=== PATIENT | male | born 1965 | race Caucasian/White ===

== ENCOUNTER 2021-07-19 08:22 | Inpatient (IN) ==
[2021-07-19] MEDS ORDERED: GLUCAGON 1 MG VIAL IM PRN (08:44)
[2021-07-19] MEDS ORDERED: DEXTROSE 50% 25 GM/50 ML VIAL IV PRN (08:44)
[2021-07-19] MEDS ORDERED: CLORAZEPATE 3.75 MG TABLET PO PRN (08:56)
[2021-07-19 09:25] LABS: Basophils # 0.1 10*3/uL (0.0-0.2); Basophils % 0.8 % (0.0-0.8); Eosinophils # 0.3 10*3/uL (0.0-0.87); Eosinophils % 3.6 % (0.00-10.9); Hemoglobin 15.5 GM/DL (14.0-18.0); Immature Granulocytes % 0.3 %; Immature Granulocytes Absolute 0.02 #; Lymphocytes # 3.1 10*3/uL (1.4-4.0); Mean Corpuscular HGB Conc 33.7 GM/DL (32-36); Mean Corpuscular Volume 91.8 FL (87-102); Neutrophils % 45.3 % (38.7-73.9); Platelet Count 295 T/CUMM (130-400); Red Blood Count 5.01 MC/CUMM (3.8-5.5); Red Cell Distribution Width 14.4 % (9.3-17.3); White Blood Count 7.3 T/CUMM (4-12)
[2021-07-19 09:44] LABS: Alanine Aminotransferase 27 U/L (16-61); Albumin 3.7 G/DL (3.4-5.0); Alkaline Phosphatase 54 U/L (45-117); Aspartate Amino Transferase 17 U/L (0-37); Bilirubin,Total < 0.39 MG/DL (0.20-1.00); Blood Urea Nitrogen 12 MG/DL (7-18); Calcium 8.9 MG/DL (8.5-10.1); Carbon Dioxide 25 MMOL/L (21-32); Eosinophils 2 % (0-10); Estimated Glom Filtration Rate 0 ML/MIN; Glucose 91 MG/DL (74-106); Lymphocytes 48 % (20-55); Segmented Neutrophils 47 % (50-85); Sodium 136 MMOL/L (136-145); Total Cells Counted 100; Total Protein 7.8 G/DL (6.4-8.2)
[2021-07-19 09:45] LABS: Platelet Estimate Adequate
[2021-07-19 10:47] LABS: ABG Base Excess 1.6 MMOL/L (-2.5-2.5); ABG HCO3 25.8 MMOL/L (20-26); ABG Oxygen Saturation 96.1 % (95-100); ABG PH 7.422 (7.35-7.45); ABG PO2 78.8 MM HG (80-95); ABG TCO2 22.1 MMOL/L (23-27)
[2021-07-19] MEDS: CHLORHEXIDINE 4% SOLN 118 ML BOTTLE TOP SCH ×2 (11:21→21:36)
[2021-07-19] MEDS: CHLORHEXIDINE 0.12% ORAL RINSE 60 ML BOTTLE SWISH/SPIT SCH ×2 (11:22→21:36)
[2021-07-19] MEDS ORDERED: MORPHINE 2 MG/1 ML SYRINGE IV PRN (11:50)
[2021-07-19] MEDS ORDERED: NITROGLYCERIN SL 0.4 MG TABLET SL PRN (11:50)
[2021-07-19] MEDS: SODIUM CHLORIDE 0.9% 1,000 ML IV SCH (18:10)
[2021-07-19] MEDS ORDERED: NICOTINE 21 MG/24 HR PATCH TRANSDERM PRN (18:26)
[2021-07-20] MEDS ORDERED: PAPAVERINE 60 MG/2 ML VIAL ONE (04:51)
[2021-07-20] MEDS ORDERED: VANCOMYCIN 500 MG VIAL ONE (04:51)
[2021-07-20] MEDS ORDERED: VANCOMYCIN 1,000 MG VIAL ONE (04:51)
[2021-07-20] MEDS: CHLORHEXIDINE 4% SOLN 118 ML BOTTLE TOP SCH (04:54)
[2021-07-20] MEDS ORDERED: VANCOMYCIN INJ 1,000 MG in SODIUM CHLORIDE 0.9% 250 ML IV ONE (05:00)
[2021-07-20] MEDS ORDERED: DIAZEPAM 5 MG TABLET PO ONE (05:51)
[2021-07-20] MEDS ORDERED: FAMOTIDINE 20 MG TABLET PO ONE (05:51)
[2021-07-20] MEDS ORDERED: SUFentanil 250 MCG/5 ML AMP ONE ×3 (06:09→10:03)
[2021-07-20] MEDS ORDERED: MIDAZOLAM 10 MG/2 ML VIAL ONE ×4 (06:10→09:56)
[2021-07-20] MEDS ORDERED: PHENYLEPHRINE 10 MG/1 ML VIAL IV ONE (06:18)
[2021-07-20] MEDS ORDERED: ePHEDrine 50 MG/ML VIAL ONE (07:35)
[2021-07-20 07:51] LABS: ABG Oxygen Saturation 99.5 % (95-100); ABG PCO2 48.2 MM HG (35-48); ABG PH 7.303 (7.35-7.45); Glucose Heart Surgery 113 MG/DL (74-106); Hematocrit Heart Surgery 41.2 PERCENT (42-52); Hemoglobin Heart Surgery 13.4 G/DL (14.0-18.0); Ionized Calcium Arterial 1.19 MMOL/L (1.21-1.46); PCO2 Patient Temp Arterial 48.2 MMHG; PH Patient Temp Arterial 7.303; Patient Temperature 37 CELCIUS; Potassium Heart/CVR 4.2 MMOL/L (3.5-5.1); Sodium Heart/CVR 142 MMOL/L (135-145)
[2021-07-20 07:57] LABS: Bacteria,Urine Occasional /HPF (Few); Bilirubin,Urine Negative (Negative); Blood, Urine Negative (Negative); Glucose,Urine (UA) Negative (Negative); Ketones,Urine Negative (Negative); Mucus,Urine Occasional /LPF (Occasional); Nitrite,Urine Negative (Negative); Protein,Urine Negative; RBC,Urine 1 /HPF (0-4); Urine Appearance CLEAR (Clear); Urine Color Straw (Yellow); Urine Specific Gravity 1.009 (1.001-1.035); Urine Urobilinogen < 2.0 EU/DL (0.2-1.0)
[2021-07-20] MEDS ORDERED: SODIUM BICARBONATE 50 MEQ/50 ML VIAL IV ONE ×2 (09:00→10:34)
[2021-07-20] MEDS ORDERED: PHENYLEPHRINE DRIP 40 MG/250 ML PREMIX IV ONE (09:01)
[2021-07-20] MEDS ORDERED: POTASSIUM CHLORIDE RIDER 20 MEQ/100 ML PREMIX IV ONE (09:01)
[2021-07-20] MEDS ORDERED: NITROPRUSSIDE 50 MG/2 ML VIAL ONE (09:01)
[2021-07-20] MEDS ORDERED: CALCIUM CHLORIDE 1,000 MG/10 ML SYRINGE IV ONE (09:01)
[2021-07-20] MEDS ORDERED: ALBUMIN 5% 25.0 GM/500 ML VIAL IV ONE (09:02)
[2021-07-20 09:26] LABS: Hematocrit Heart Surgery 30.4 PERCENT (42-52); Hemoglobin Heart Surgery 9.8 G/DL (14.0-18.0); PCO2 Patient Temp Venous 38.7 MM HG; PH Patient Temp Venous 7.392; PO2 Patient Temp Venous 42.1 MM HG; Potassium Heart/CVR 5.5 MMOL/L (3.5-5.1); VBG Base Excess -1.1 MEQ/L (0-4); VBG HCO3 23.2 MEQ/L (24-28); VBG Oxygen Saturation 81.8 %; VBG PCO2 42.6 MMHG (41-51); VBG PH 7.363; VBG PO2 48.3 MMHG (17-40); VBG Total CO2 22.3 MMOL/L
[2021-07-20 10:00] LABS: Hematocrit Heart Surgery 31.9 PERCENT (42-52); Hemoglobin Heart Surgery 10.3 G/DL (14.0-18.0); PCO2 Patient Temp Venous 35.3 MM HG; PH Patient Temp Venous 7.42; VBG Base Excess -1.1 MEQ/L (0-4); VBG HCO3 23.2 MEQ/L (24-28); VBG Oxygen Saturation 80.7 %; VBG PCO2 38.9 MMHG (41-51); VBG PH 7.391; VBG Total CO2 21.5 MMOL/L
[2021-07-20 10:01] LABS: Potassium Heart/CVR 6.3 MMOL/L (3.5-5.1)
[2021-07-20] MEDS ORDERED: LIDOCAINE 2% 5 ML VIAL ONE ×2 (10:33→11:19)
[2021-07-20] MEDS ORDERED: methylPREDNISolone SOD SUC 1,000 MG/8 ML VIAL ONE (10:33)
[2021-07-20] MEDS ORDERED: MAGNESIUM SULFATE 5 GM/10 ML VIAL IV ONE (10:33)
[2021-07-20] MEDS ORDERED: ALBUMIN 25% 25 GM/100 ML VIAL IV ONE (10:33)
[2021-07-20] MEDS ORDERED: FUROSEMIDE 20 MG/2 ML VIAL ONE (10:34)
[2021-07-20] MEDS ORDERED: HEPARIN 10,000 UNIT/10 ML VIAL ONE (10:34)
[2021-07-20] MEDS ORDERED: PROTAMINE SULFATE 50 MG/5 ML VIAL IV ONE (10:34)
[2021-07-20] MEDS ORDERED: DEXTROSE 5% KCL 20 MEQ 20 MEQ/1,000 ML BAG IV ONE (10:34)
[2021-07-20] MEDS ORDERED: PROTAMINE SULFATE 250 MG/25 ML VIAL IV ONE (10:34)
[2021-07-20] MEDS ORDERED: MANNITOL 100 GM/500 ML BAG IV ONE (10:34)
[2021-07-20 10:35] LABS: ABG Base Excess -3.4 MMOL/L (-2.5-2.5); ABG HCO3 21.6 MMOL/L (20-26); ABG Oxygen Saturation 99.4 % (95-100); ABG PH 7.327 (7.35-7.45); ABG TCO2 20.2 MMOL/L (23-27); Glucose Heart Surgery 194 MG/DL (74-106); Hematocrit Heart Surgery 35.5 PERCENT (42-52); Hemoglobin Heart Surgery 11.5 G/DL (14.0-18.0); Ionized Calcium Arterial 1.24 MMOL/L (1.21-1.46); PH Patient Temp Arterial 7.327; Patient Temperature 37 CELCIUS; Potassium Heart/CVR 5.1 MMOL/L (3.5-5.1); Sodium Heart/CVR 135 MMOL/L (135-145)
[2021-07-20] MEDS ORDERED: POTASSIUM CHLORIDE RIDER 10 MEQ/100 ML PREMIX IV PRN (10:36)
[2021-07-20] MEDS ORDERED: INSULIN REGULAR 100 UNIT/ML IV PRN (10:36)
[2021-07-20] MEDS ORDERED: MAGNESIUM SULF RIDER 4 GM/100 ML PREMIX IV PRN (10:36)
[2021-07-20] MEDS ORDERED: MIDAZOLAM 2 MG/2 ML VIAL IV PRN (10:36)
[2021-07-20] MEDS ORDERED: INSULIN REGULAR 100 UNIT/ML IV ONE (10:36)
[2021-07-20] MEDS ORDERED: NITROPRUSSIDE 100 MG in DEXTROSE 5% 250 ML IV PRN (10:36)
[2021-07-20] MEDS ORDERED: MAGNESIUM SULF RIDER 2 GM/50 ML PREMIX IV PRN (10:36)
[2021-07-20] MEDS ORDERED: CHLORHEXIDINE 4% SOLN 118 ML BOTTLE TOP PRN (10:36)
[2021-07-20] MEDS ORDERED: PHENYLEPHRINE DRIP 40 MG/250 ML PREMIX IV PRN (10:36)
[2021-07-20] MEDS ORDERED: CALCIUM CHLORIDE 1,000 MG/10 ML SYRINGE IV PRN (10:36)
[2021-07-20] MEDS ORDERED: MIDAZOLAM 10 MG/2 ML VIAL IV PRN (10:36)
[2021-07-20] MEDS ORDERED: ONDANSETRON 4 MG/2 ML VIAL IV PRN (10:36)
[2021-07-20] MEDS ORDERED: ACETAMINOPHEN 650 MG SUPP RECTAL PRN (10:36)
[2021-07-20] MEDS ORDERED: DEXTROSE 50% 25 GM/50 ML VIAL IV PRN ×2 (10:36)
[2021-07-20] MEDS ORDERED: MORPHINE 10 MG/1 ML VIAL IV PRN (10:36)
[2021-07-20] MEDS ORDERED: VECURONIUM 10 MG VIAL IV PRN ×2 (10:36)
[2021-07-20] MEDS ORDERED: SODIUM CHLORIDE 0.45% 1,000 ML IV SCH ×2 (11:00)
[2021-07-20] MEDS ORDERED: INSULIN REGULAR DRIP 100 ML IV SCH (11:00)
[2021-07-20] MEDS ORDERED: NITROGLYCERIN DRIP 50 MG/250 ML BOTTLE IV ONE (11:19)
[2021-07-20] MEDS ORDERED: LACTATED RINGERS 1,000 ML IV ONE (11:19)
[2021-07-20] MEDS ORDERED: SEVOFLURANE 1 UNIT/15 MINUTE INH ONE (11:19)
[2021-07-20] MEDS ORDERED: SODIUM CHLORIDE 0.9% 250 ML IV ONE (11:19)
[2021-07-20] MEDS ORDERED: VECURONIUM 10 MG VIAL IV ONE (11:19)
[2021-07-20] MEDS ORDERED: CALCIUM CHLORIDE 1,000 MG/10 ML VIAL IV ONE (11:19)
[2021-07-20] MEDS ORDERED: ETOMIDATE 40 MG/20 ML VIAL IV ONE (11:19)
[2021-07-20] MEDS ORDERED: GLYCOPYRROLATE 0.4 MG/2 ML VIAL ONE (11:19)
[2021-07-20] MEDS ORDERED: SODIUM CHLORIDE 0.9% 1,000 ML IV ONE (11:19)
[2021-07-20] MEDS ORDERED: SODIUM CHLORIDE 0.9% 300 ML IV ONE (11:19)
[2021-07-20 11:22] LABS: ABG Base Excess -1.9 MMOL/L (-2.5-2.5); ABG HCO3 22.8 MMOL/L (20-26); ABG Oxygen Saturation 96.2 % (95-100); ABG PCO2 46.4 MM HG (35-48); ABG PH 7.329 (7.35-7.45); ABG PO2 90.9 MM HG (80-95); ABG TCO2 21.6 MMOL/L (23-27); Glucose Heart Surgery 171 MG/DL (74-106); Hematocrit Heart Surgery 39.3 PERCENT (42-52); Hemoglobin Heart Surgery 12.8 G/DL (14.0-18.0); Potassium Heart/CVR 4.5 MMOL/L (3.5-5.1)
[2021-07-20 11:25] LABS: Basophils % 0.4 % (0.0-0.8); Eosinophils # 0.1 10*3/uL (0.0-0.87); Eosinophils % 1.2 % (0.00-10.9); Hematocrit 37.5 VOL% (42.0-52.0); Immature Granulocytes % 1.3 %; Immature Granulocytes Absolute 0.12 #; Lymphocytes # 1.8 10*3/uL (1.4-4.0); Lymphocytes % 19.8 % (21.2-54.2); Mean Corpuscular HGB Conc 33.1 GM/DL (32-36); Mean Corpuscular Volume 94.2 FL (87-102); Mean Platelet Volume 8.8 FL (9.6-12.0); Monocytes % 3.2 % (1.7-12.7); Neutrophils % 74.1 % (38.7-73.9); Red Cell Distribution Width 14.5 % (9.3-17.3)
[2021-07-20 11:32] LABS: Hemoglobin 12.4 GM/DL (14.0-18.0); PT Patient Result 11.4 SECS (10.5-12.0); Partial Thromboplastin Time 27.1 SECS (23.9-33.8); Platelet Count 225 T/CUMM (130-400); Red Blood Count 3.98 MC/CUMM (3.8-5.5)
[2021-07-20] MEDS: CHLORHEXIDINE 0.12% ORAL RINSE 60 ML BOTTLE SWISH/SPIT SCH ×3 (11:35→21:48)
[2021-07-20 11:42] LABS: CKMB % 5.8 %
[2021-07-20 11:44] LABS: High Sensitive Troponin I* 1374.4 ng/L (0-78)
[2021-07-20 11:49] LABS: Bilirubin,Total 0.6 MG/DL (0.20-1.00); Calcium 8.1 MG/DL (8.5-10.1); Osmolality,Calculated 280.4 MOS/KG (273-304); Potassium 4.6 MMOL/L (3.5-5.1)
[2021-07-20] MEDS: SODIUM CHLORIDE 0.9% 1,000 ML IV SCH (12:17)
[2021-07-20 12:34] LABS: ABG Base Excess -1.1 MMOL/L (-2.5-2.5); ABG HCO3 23.5 MMOL/L (20-26); ABG Oxygen Saturation 98.3 % (95-100); ABG PCO2 41.6 MM HG (35-48); ABG PH 7.372 (7.35-7.45); ABG TCO2 21.1 MMOL/L (23-27); Glucose Heart Surgery 148 MG/DL (74-106); Hematocrit Heart Surgery 41.4 PERCENT (42-52); Hemoglobin Heart Surgery 13.5 G/DL (14.0-18.0); Potassium Heart/CVR 4.3 MMOL/L (3.5-5.1)
[2021-07-20] MEDS: LACTATED RINGERS 250 ML IV PRN ×6 (13:23→16:37)
[2021-07-20] MEDS: ALBUMIN 5% 12.5 GM/250 ML VIAL IV PRN ×4 (13:32→17:55)
[2021-07-20 14:22] LABS: ABG Base Excess -0.8 MMOL/L (-2.5-2.5); ABG HCO3 23.8 MMOL/L (20-26); ABG Oxygen Saturation 96.5 % (95-100); ABG PCO2 42.2 MM HG (35-48); ABG PH 7.373 (7.35-7.45); ABG PO2 88.4 MM HG (80-95); ABG TCO2 21.5 MMOL/L (23-27); Glucose Heart Surgery 143 MG/DL (74-106); Hematocrit Heart Surgery 39.9 PERCENT (42-52); Potassium Heart/CVR 4.2 MMOL/L (3.5-5.1)
[2021-07-20] MEDS: KETOROLAC 30 MG/1 ML VIAL IV SCH ×2 (15:28→21:49)
[2021-07-20 16:52] LABS: ABG HCO3 23.5 MMOL/L (20-26); ABG Oxygen Saturation 96.5 % (95-100); ABG PCO2 44.1 MM HG (35-48); ABG PH 7.357 (7.35-7.45); ABG PO2 89.6 MM HG (80-95); ABG TCO2 21.9 MMOL/L (23-27); Glucose Heart Surgery 166 MG/DL (74-106); Hematocrit Heart Surgery 38.3 PERCENT (42-52); Hemoglobin Heart Surgery 12.4 G/DL (14.0-18.0); Potassium Heart/CVR 4.6 MMOL/L (3.5-5.1)
[2021-07-20] MEDS ORDERED: FUROSEMIDE 40 MG/4 ML VIAL ONE (17:24)
[2021-07-20] MEDS: INSULIN REGULAR 100 UNIT/ML SUBCUT PRN ×2 (17:34→20:09)
[2021-07-20] MEDS ORDERED: FUROSEMIDE 40 MG/4 ML VIAL IV ONE (17:37)
[2021-07-20] MEDS ORDERED: INSULIN REGULAR 100 UNIT/ML SUBCUT SCH (18:00)
[2021-07-20 20:02] LABS: ABG Base Excess -2.5 MMOL/L (-2.5-2.5); ABG HCO3 22.3 MMOL/L (20-26); ABG Oxygen Saturation 96.2 % (95-100); ABG PCO2 43.8 MM HG (35-48); ABG PH 7.336 (7.35-7.45); ABG PO2 88.8 MM HG (80-95); ABG TCO2 20.8 MMOL/L (23-27); Glucose Heart Surgery 218 MG/DL (74-106); Hematocrit Heart Surgery 38.6 PERCENT (42-52); Hemoglobin Heart Surgery 12.5 G/DL (14.0-18.0); Potassium Heart/CVR 4.5 MMOL/L (3.5-5.1)
[2021-07-20 20:05] LABS: Basophils % 0.2 % (0.0-0.8); Hematocrit 37.3 VOL% (42.0-52.0); Hemoglobin 12.3 GM/DL (14.0-18.0); Immature Granulocytes % 0.5 %; Immature Granulocytes Absolute 0.06 #; Lymphocytes # 0.6 10*3/uL (1.4-4.0); Mean Corpuscular Volume 93.3 FL (87-102); Mean Platelet Volume 9.9 FL (9.6-12.0); Monocytes % 1.8 % (1.7-12.7); Neutrophils % 92.5 % (38.7-73.9); Platelet Count 292 T/CUMM (130-400); Red Cell Distribution Width 14.6 % (9.3-17.3); White Blood Count 11.2 T/CUMM (4-12)
[2021-07-20 20:31] LABS: CKMB % 2.8 %
[2021-07-20 20:49] LABS: High Sensitive Troponin I* 5108.3 ng/L (0-78)
[2021-07-20 21:09] LABS: ABG Base Excess -2.7 MMOL/L (-2.5-2.5); ABG HCO3 22.1 MMOL/L (20-26); ABG Oxygen Saturation 94.3 % (95-100); ABG PH 7.339 (7.35-7.45); ABG PO2 76.5 MM HG (80-95); ABG TCO2 20.5 MMOL/L (23-27); Glucose Heart Surgery 230 MG/DL (74-106); Hemoglobin Heart Surgery 12.7 G/DL (14.0-18.0); Potassium Heart/CVR 4.5 MMOL/L (3.5-5.1)
[2021-07-20 22:04] LABS: ABG Base Excess -3.6 MMOL/L (-2.5-2.5); ABG HCO3 21.4 MMOL/L (20-26); ABG Oxygen Saturation 96.8 % (95-100); ABG PCO2 40.4 MM HG (35-48); ABG PH 7.341 (7.35-7.45); ABG PO2 94.5 MM HG (80-95); ABG TCO2 19.4 MMOL/L (23-27); Glucose Heart Surgery 224 MG/DL (74-106); Hematocrit Heart Surgery 38.8 PERCENT (42-52); Hemoglobin Heart Surgery 12.6 G/DL (14.0-18.0); Potassium Heart/CVR 4.2 MMOL/L (3.5-5.1)
[2021-07-20] MEDS: POTASSIUM CHLORIDE RIDER 20 MEQ/100 ML PREMIX IV PRN (22:11)
[2021-07-20] MEDS: VANCOMYCIN INJ 1,000 MG in SODIUM CHLORIDE 0.9% 250 ML IV SCH (23:10)
[2021-07-21 00:09] LABS: ABG Base Excess -2.9 MMOL/L (-2.5-2.5); ABG HCO3 21.9 MMOL/L (20-26); ABG Oxygen Saturation 95.7 % (95-100); ABG PCO2 40.4 MM HG (35-48); ABG PH 7.353 (7.35-7.45); ABG PO2 83.5 MM HG (80-95); ABG TCO2 19.8 MMOL/L (23-27); Glucose Heart Surgery 190 MG/DL (74-106); Hematocrit Heart Surgery 39.1 PERCENT (42-52); Hemoglobin Heart Surgery 12.7 G/DL (14.0-18.0); Potassium Heart/CVR 4.4 MMOL/L (3.5-5.1)
[2021-07-21] MEDS: POTASSIUM CHLORIDE RIDER 20 MEQ/100 ML PREMIX IV PRN (00:26)
[2021-07-21] MEDS: INSULIN REGULAR 100 UNIT/ML SUBCUT PRN (00:26)
[2021-07-21] MEDS ORDERED: FUROSEMIDE 40 MG/4 ML VIAL IV ONE (02:01)
[2021-07-21] MEDS ORDERED: FUROSEMIDE 40 MG/4 ML VIAL ONE (02:17)
[2021-07-21] MEDS: KETOROLAC 30 MG/1 ML VIAL IV SCH ×4 (02:55→20:58)
[2021-07-21 04:14] LABS: ABG Base Excess -0.7 MMOL/L (-2.5-2.5); ABG HCO3 23.6 MMOL/L (20-26); ABG Oxygen Saturation 95.4 % (95-100); ABG PCO2 37.9 MM HG (35-48); ABG PH 7.412 (7.35-7.45); ABG PO2 78.5 MM HG (80-95); ABG TCO2 24.8 MMOL/L (23-27); Glucose Heart Surgery 131 MG/DL (74-106); Hemoglobin Heart Surgery 12.8 G/DL (14.0-18.0); Potassium Heart/CVR 4.4 MMOL/L (3.5-5.1)
[2021-07-21 04:43] LABS: Basophils % 0.2 % (0.0-0.8); Hemoglobin 12.1 GM/DL (14.0-18.0); Immature Granulocytes % 0.3 %; Immature Granulocytes Absolute 0.04 #; Lymphocytes # 0.8 10*3/uL (1.4-4.0); Lymphocytes % 6.3 % (21.2-54.2); Mean Corpuscular HGB Conc 33.6 GM/DL (32-36); Mean Platelet Volume 10.8 FL (9.6-12.0); Monocytes % 4.2 % (1.7-12.7); Platelet Count 296 T/CUMM (130-400); Red Blood Count 3.87 MC/CUMM (3.8-5.5); Red Cell Distribution Width 14.7 % (9.3-17.3); White Blood Count 12.7 T/CUMM (4-12)
[2021-07-21 05:56] LABS: CKMB % 3.4 %
[2021-07-21 06:08] LABS: High Sensitive Troponin I* 3810.9 ng/L (0-78)
[2021-07-21 07:07] LABS: Alanine Aminotransferase 22 U/L (16-61); Albumin 3.6 G/DL (3.4-5.0); Alkaline Phosphatase 36 U/L (45-117); Aspartate Amino Transferase 32 U/L (0-37); Bilirubin,Direct < 0.050 MG/DL (0.0-0.20); Blood Urea Nitrogen 18 MG/DL (7-18); Calcium 8.2 MG/DL (8.5-10.1); Carbon Dioxide 23 MMOL/L (21-32); Estimated Glom Filtration Rate 91 ML/MIN; Glucose 122 MG/DL (74-106); Osmolality,Calculated 281.4 MOS/KG (273-304); Potassium 4.5 MMOL/L (3.5-5.1); Sodium 140 MMOL/L (136-145); Total Protein 6.7 G/DL (6.4-8.2)
[2021-07-21] MEDS ORDERED: ALUMINUM/MAGNES/SIMETH MAX STR 30 ML UDCUP PO PRN (07:41)
[2021-07-21] MEDS ORDERED: oxyCODONE/ACETAMINOPHEN 5-325 MG TABLET PO PRN (07:41)
[2021-07-21] MEDS ORDERED: MAGNESIUM SULF RIDER 2 GM/50 ML PREMIX IV PRN (07:41)
[2021-07-21] MEDS ORDERED: MAGNESIUM HYDROXIDE SUSP 30 ML UDCUP PO PRN (07:41)
[2021-07-21] MEDS ORDERED: MAGNESIUM SULF RIDER 4 GM/100 ML PREMIX IV PRN (07:41)
[2021-07-21] MEDS ORDERED: ONDANSETRON 4 MG/2 ML VIAL IV PRN (07:41)
[2021-07-21] MEDS ORDERED: ZALEPLON 5 MG CAPSULE PO PRN (07:41)
[2021-07-21] MEDS ORDERED: POTASSIUM CHLORIDE 20 MEQ TABLET PO PRN (07:41)
[2021-07-21] MEDS ORDERED: DEXTROSE 50% 25 GM/50 ML VIAL IV PRN (07:41)
[2021-07-21] MEDS ORDERED: GLUCAGON 1 MG VIAL IM PRN (07:41)
[2021-07-21] MEDS ORDERED: ACETAMINOPHEN 325 MG TABLET PO PRN (07:41)
[2021-07-21] MEDS: CHLORHEXIDINE 0.12% ORAL RINSE 60 ML BOTTLE SWISH/SPIT SCH ×3 (08:07→20:57)
[2021-07-21] MEDS: PANTOPRAZOLE 40 MG TABLET PO SCH (08:10)
[2021-07-21] MEDS: DOCUSATE SODIUM 100 MG CAPSULE PO SCH (08:10)
[2021-07-21] MEDS: FERROUS SULFATE 325 MG TABLET PO SCH (08:10)
[2021-07-21] MEDS: ASPIRIN EC 325 MG TABLET PO SCH (08:10)
[2021-07-21] MEDS: SODIUM CHLOR 0.45% KCL 20 MEQ 20 MEQ/1,000 ML BAG IV SCH (09:18)
[2021-07-21 11:52] LABS: CKMB % 2.3 %
[2021-07-21 11:53] LABS: High Sensitive Troponin I* 3251.1 ng/L (0-78)
[2021-07-21] MEDS: VANCOMYCIN INJ 1,000 MG in SODIUM CHLORIDE 0.9% 250 ML IV SCH (16:35)
[2021-07-21] MEDS: ATORVASTATIN 40 MG TABLET PO SCH (20:54)
[2021-07-22] MEDS: VANCOMYCIN INJ 1,000 MG in SODIUM CHLORIDE 0.9% 250 ML IV SCH ×2 (00:09→12:05)
[2021-07-22] MEDS: KETOROLAC 30 MG/1 ML VIAL IV SCH ×4 (03:03→21:51)
[2021-07-22 04:54] LABS: Basophils % 0.1 % (0.0-0.8); Hemoglobin 11.6 GM/DL (14.0-18.0); Immature Granulocytes % 0.9 %; Immature Granulocytes Absolute 0.15 #; Lymphocytes # 1.7 10*3/uL (1.4-4.0); Lymphocytes % 9.8 % (21.2-54.2); Mean Corpuscular HGB Conc 34.1 GM/DL (32-36); Mean Corpuscular Volume 92.9 FL (87-102); Mean Platelet Volume 9.8 FL (9.6-12.0); Monocytes % 6.3 % (1.7-12.7); Neutrophils % 82.9 % (38.7-73.9); Platelet Count 237 T/CUMM (130-400); Red Blood Count 3.66 MC/CUMM (3.8-5.5); Red Cell Distribution Width 14.7 % (9.3-17.3); White Blood Count 17.4 T/CUMM (4-12)
[2021-07-22 05:23] LABS: Alanine Aminotransferase 19 U/L (16-61); Albumin 3.3 G/DL (3.4-5.0); Alkaline Phosphatase 37 U/L (45-117); Aspartate Amino Transferase 26 U/L (0-37); Bilirubin,Direct < 0.100 MG/DL (0.0-0.20); Bilirubin,Indirect 0.6 MG/DL (0.0-1.0); CKMB % 1.1 %; Total Protein 6.2 G/DL (6.4-8.2)
[2021-07-22 05:25] LABS: Alanine Aminotransferase 19 U/L (16-61); Albumin 3.1 G/DL (3.4-5.0); Alkaline Phosphatase 33 U/L (45-117); Aspartate Amino Transferase 28 U/L (0-37); Bilirubin,Direct < 0.100 MG/DL (0.0-0.20); Blood Urea Nitrogen 27 MG/DL (7-18); Calcium 8.3 MG/DL (8.5-10.1); Carbon Dioxide 24 MMOL/L (21-32); Estimated Glom Filtration Rate 116 ML/MIN; Glucose 118 MG/DL (74-106); Osmolality,Calculated 286.3 MOS/KG (273-304); Potassium 4.3 MMOL/L (3.5-5.1); Sodium 141 MMOL/L (136-145); Total Protein 6.2 G/DL (6.4-8.2)
[2021-07-22] MEDS ORDERED: FUROSEMIDE 40 MG/4 ML VIAL IV ONE (06:00)
[2021-07-22] MEDS: DOCUSATE SODIUM 100 MG CAPSULE PO SCH (08:39)
[2021-07-22] MEDS: PANTOPRAZOLE 40 MG TABLET PO SCH (08:39)
[2021-07-22] MEDS: ASPIRIN EC 325 MG TABLET PO SCH (08:39)
[2021-07-22] MEDS: FERROUS SULFATE 325 MG TABLET PO SCH (08:40)
[2021-07-22] MEDS: CHLORHEXIDINE 0.12% ORAL RINSE 60 ML BOTTLE SWISH/SPIT SCH ×2 (08:41→21:53)
[2021-07-22] MEDS: SODIUM CHLOR 0.45% KCL 20 MEQ 20 MEQ/1,000 ML BAG IV SCH (08:42)
[2021-07-22] MEDS: ATORVASTATIN 40 MG TABLET PO SCH (21:52)
[2021-07-23] MEDS: KETOROLAC 30 MG/1 ML VIAL IV SCH ×2 (04:23→09:50)
[2021-07-23 05:02] LABS: Basophils % 0.3 % (0.0-0.8); Eosinophils # 0.1 10*3/uL (0.0-0.87); Eosinophils % 0.4 % (0.00-10.9); Hematocrit 35.1 VOL% (42.0-52.0); Hemoglobin 11.6 GM/DL (14.0-18.0); Immature Granulocytes % 0.5 %; Immature Granulocytes Absolute 0.06 #; Lymphocytes # 4.1 10*3/uL (1.4-4.0); Lymphocytes % 33.4 % (21.2-54.2); Mean Corpuscular Volume 93.6 FL (87-102); Mean Platelet Volume 9.8 FL (9.6-12.0); Monocytes % 7.5 % (1.7-12.7); Neutrophils % 57.9 % (38.7-73.9); Platelet Count 243 T/CUMM (130-400); Red Blood Count 3.75 MC/CUMM (3.8-5.5); Red Cell Distribution Width 14.8 % (9.3-17.3); White Blood Count 12.3 T/CUMM (4-12)
[2021-07-23 05:24] LABS: Alanine Aminotransferase 32 U/L (16-61); Alkaline Phosphatase 39 U/L (45-117); Aspartate Amino Transferase 28 U/L (0-37); Bilirubin,Direct < 0.050 MG/DL (0.0-0.20); Blood Urea Nitrogen 25 MG/DL (7-18); Calcium 8.1 MG/DL (8.5-10.1); Carbon Dioxide 26 MMOL/L (21-32); Estimated Glom Filtration Rate 102 ML/MIN; Glucose 87 MG/DL (74-106); Osmolality,Calculated 281.4 MOS/KG (273-304); Sodium 140 MMOL/L (136-145); Total Protein 6.2 G/DL (6.4-8.2)
[2021-07-23 05:29] LABS: Alanine Aminotransferase 31 U/L (16-61); Alkaline Phosphatase 37 U/L (45-117); Aspartate Amino Transferase 26 U/L (0-37); Bilirubin,Direct < 0.100 MG/DL (0.0-0.20); Calcium 7.9 MG/DL (8.5-10.1); Total Protein 6.3 G/DL (6.4-8.2)
[2021-07-23 05:30] LABS: Bilirubin,Indirect 0.5 MG/DL (0.0-1.0)
[2021-07-23 05:53] LABS: Hypochromasia 1+
[2021-07-23 05:54] LABS: Microcytosis Slight; Platelet Estimate Normal
[2021-07-23 08:19] VITALS: BP 119/78
[2021-07-23] MEDS: PANTOPRAZOLE 40 MG TABLET PO SCH (09:49)
[2021-07-23] MEDS: DOCUSATE SODIUM 100 MG CAPSULE PO SCH (09:49)
[2021-07-23] MEDS: ASPIRIN EC 325 MG TABLET PO SCH (09:49)
[2021-07-23] MEDS: FERROUS SULFATE 325 MG TABLET PO SCH (09:55)
[2021-07-23] MEDS: CHLORHEXIDINE 0.12% ORAL RINSE 60 ML BOTTLE SWISH/SPIT SCH (09:55)
== END 2021-07-23 11:29 | disposition home or self-care (01) | DRG 236 ==
LOC: N.5E 08:22 → N.CVR 07-20 10:43 → N.TELES 07-21 08:26